=== PATIENT | male | born 1980 | race Two or more races ===

== ENCOUNTER 2020-01-17 12:44 | Outpatient (CLI) | payer MEDICAID ==
--- NOTE | 2020-01-17 15:00 | Consultation ---
DATE OF CONSULTATION: 01/17/2020 CHIEF COMPLAINT: Rectal bleeding. HISTORY OF PRESENT ILLNESS: The patient is a 40-year-old male with one episode of rectal pain with severe rectal bleeding. PAST MEDICAL HISTORY: None. PAST SURGICAL HISTORY: None. MEDICATIONS: None. FAMILY HISTORY: None. SOCIAL HISTORY: The patient drinks heavy alcohol. He takes marijuana. Also smokes cigarettes. ALLERGIES: No known drug allergies. REVIEW OF SYSTEMS: Except for rectal bleeding negative. PHYSICAL EXAMINATION: VITAL SIGNS: Temperature 97.7. Vital signs stable. HEENT: Normocephalic and atraumatic. Sclerae anicteric. NECK: Supple. No evidence of obvious lymphadenopathy. CARDIOVASCULAR: Regular rate and rhythm. Plus S1 and S2. LUNGS: Clear to auscultation bilaterally. ABDOMEN: Positive bowel sounds. Soft and nontender. No rebound. No guarding. No peritoneal sign. SKIN: The patient has multiple tattoos. ASSESSMENT: The patient is a 40-year-old male with rectal bleeding. Differential diagnosis would be diverticular bleed versus hemorrhoids versus other cause of rectal bleeding. PLAN: The patient was advised to stop drinking which he said he already had. We are going to try to schedule the patient for colonoscopy for evaluation of cause of rectal bleeding. Antoine Feliz M.D. DR: Debra JOB#: [id number] CC:
== END 2020-01-17 14:44 | disposition home or self-care (01) ==
LOC: PAN 12:44
DX: K62.5 Hemorrhage of anus and rectum (principal); F17.210 Nicotine dependence, cigarettes, uncomplicated; R52 Pain, unspecified; F12.90 Cannabis use, unspecified, uncomplicated
CPT/HCPCS: G0463

== ENCOUNTER 2020-04-01 13:08 | Outpatient (CLI) | payer MEDICAID ==
--- NOTE | 2020-04-01 15:11 | General Progress Note ---
Subjective ROS Limited/Unobtainable: Yes Allergies: Coded Allergies: No Known Allergies (Unverified , 01/23/20) Objective General Appearance: alert EENT: PERRL/EOMI Neck: supple Cardiovascular: normal rate Respiratory/Chest: lungs clear Abdomen: normal bowel sounds, non tender, soft Extremities: non-tender Assessment/Plan Assessment/Plan: colonoscopy reviewed repeat colon in 5 years Antoine Feliz MD Apr 01, 2020 15:11
== END 2020-04-01 15:08 | disposition home or self-care (01) ==
LOC: PAN 13:08
DX: Z00.00 Encounter for general adult medical examination without abnormal findings (principal)
CPT/HCPCS: G0463